=== PATIENT | male | born 1945 | race African-American/Black ===

== ENCOUNTER 2019-12-30 10:54 | Emergency (ER) | payer OTHER ==
[2019-12-31 12:22] LABS: SARS-CoV-2 MS2 Positive; SARS-CoV-2 N Gene Negative; SARS-CoV-2 S Gene Negative; SARS-CoV-2 by NAA Not Detected (NotDetected); SARS-CoV-2 orf1ab Negative
== END 2019-12-30 11:10 | disposition home or self-care (01) ==
LOC: ERS 10:54
DX: Z20.828 Contact with and (suspected) exposure to other viral communicable diseases (principal); E11.42 Type 2 diabetes mellitus with diabetic polyneuropathy; E78.5 Hyperlipidemia, unspecified; E78.00 Pure hypercholesterolemia, unspecified; I10 Essential (primary) hypertension; M10.9 Gout, unspecified; F32.9 Major depressive disorder, single episode, unspecified; Z87.891 Personal history of nicotine dependence; Z79.4 Long term (current) use of insulin
CPT/HCPCS: 87635; 99283; U0003

== ENCOUNTER 2020-05-21 14:14 | Inpatient (IN) | payer OTHER ==
[2020-05-21 15:44] LABS: #Eosinphils 0.2 thou/uL (0.0-0.7); #Lymphocytes 1.2 thou/uL (1.20-3.40); #Monocytes 0.6 thou/uL (0.11-0.59); #Neutrophils 3.9 thou/uL (1.40-6.50); %Basophils 0.4 % (0.0-1.0); %Eosinophils 3.2 % (0.0-10.0); %Lymphocytes 20.8 % (21.0-51.0); %Monocytes 9.8 % (0.0-10.0); %Neutrophils 65.9 % (42.0-75.0); Hemoglobin 10.5 g/dL (14.0-18.0); Mean Corpuscular HGB CONC 34.4 g/dL (32.0-36.0); Mean Corpuscular Hemoglobin 34.1 pg (27.0-31.0); Mean Corpuscular Volume 99.2 fL (78.0-98.0); Platelet Count 135 thou/uL (130-400); RBC Distribution Width 14.5 % (11.5-14.5); Red Blood Cell (RBC) Count 3.08 mill/uL (4.70-6.10); White Blood Cell (WBC) Count 5.9 thou/uL (4.8-10.8)
[2020-05-21 16:06] LABS: ALT (SGPT) 12 U/L (8-55); AST (SGOT) 15 U/L (5-34); Albumin 4.1 g/dL (3.4-4.8); Alkaline Phosphatase 62 U/L (40-110); Anion Gap 27 mmol/L (10-20); BUN (Urea Nitrogen) 109 mg/dL (8.4-25.7); Bilirubin, Total 0.5 mg/dL (0.2-1.2); Calc. Creatinine Clearance 0 mL/min (70-130); Calcium 9.2 mg/dL (7.8-10.44); Carbon Dioxide 21 mmol/L (23-31); Chloride 97 mmol/L (98-107); Globulin 3.2 g/dL (2.4-3.5); Glucose 96 mg/dL (83-110); Potassium 6.5 mmol/L (3.5-5.1); Protein, Total 7.3 g/dL (5.8-8.1); Sodium 138 mmol/L (136-145)
[2020-05-21] MEDS ORDERED: Heparin 1,000 UNITS/ML VIAL ONE (16:36)
[2020-05-21] MEDS ORDERED: Dextrose 50% Abboject 50 ML SYRINGE ONE ×2 (19:34→23:09)
[2020-05-21] MEDS ORDERED: Sodium Bicarb 50 MEQ/50 ML Abboject 8.4% SYRINGE ONE (19:34)
[2020-05-21] MEDS ORDERED: Insulin Regular 300 UNITS/3 ML VIAL ONE (19:34)
[2020-05-21] MEDS ORDERED: Calcium Chloride 1 GM/10 ML Abboject SYRINGE ONE (19:34)
[2020-05-21] MEDS ORDERED: Acetaminophen 325 MG TAB PO PRN (20:43)
[2020-05-21] MEDS ORDERED: Acetaminophen 650 MG Suppository PR PRN (20:43)
[2020-05-21] MEDS ORDERED: Dextrose 5% in Water 1,000 ML IV PRN (20:44)
[2020-05-21] MEDS ORDERED: Dextrose 50% Abboject 50 ML SYRINGE SLOW IVP PRN (20:44)
[2020-05-21] MEDS ORDERED: HumaLOG 300 UNITS/3 ML VIAL SC PRN ×2 (20:44)
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
[2020-05-21 21:57] LABS: INR-International Normal Ratio 1.1; PTT 32.5 sec (22.9-36.1); Prothrombin Time 14.2 sec (12.0-14.7)
[2020-05-21 22:03] LABS: Anion Gap 26 mmol/L (10-20); BUN (Urea Nitrogen) 111 mg/dL (8.4-25.7); Calc. Creatinine Clearance 0 mL/min (70-130); Calcium 9.9 mg/dL (7.8-10.44); Carbon Dioxide 24 mmol/L (23-31); Chloride 98 mmol/L (98-107); Magnesium 3.2 mg/dL (1.6-2.6); Phosphorus 7.1 mg/dL (2.3-4.7); Potassium 5.2 mmol/L (3.5-5.1); Sodium 143 mmol/L (136-145)
[2020-05-21 22:31] LABS: SARS-CoV-2 NAA Rapid Test Not Detected (NotDetected)
[2020-05-21 22:35] LABS: Glucose 41 mg/dL (83-110)
[2020-05-22] MEDS: hydrALAZINE 20 MG/ML VIAL SLOW IVP PRN ×3 (02:21→10:22)
[2020-05-22 04:23] VITALS: BMI 24.3
[2020-05-22 04:48] LABS: #Eosinphils 0.2 thou/uL (0.0-0.7); #Lymphocytes 1.4 thou/uL (1.20-3.40); #Monocytes 0.6 thou/uL (0.11-0.59); #Neutrophils 4.1 thou/uL (1.40-6.50); %Basophils 0.4 % (0.0-1.0); %Eosinophils 3.6 % (0.0-10.0); %Lymphocytes 21.8 % (21.0-51.0); %Monocytes 9.6 % (0.0-10.0); %Neutrophils 64.6 % (42.0-75.0); Hemoglobin 10.3 g/dL (14.0-18.0); Mean Corpuscular HGB CONC 34.6 g/dL (32.0-36.0); Mean Corpuscular Volume 98.4 fL (78.0-98.0); Mean Platelet Volume 9.1 fL (7.4-10.4); Platelet Count 121 thou/uL (130-400); RBC Distribution Width 14.4 % (11.5-14.5); Red Blood Cell (RBC) Count 3.03 mill/uL (4.70-6.10); White Blood Cell (WBC) Count 6.3 thou/uL (4.8-10.8)
[2020-05-22 05:08] LABS: ALT (SGPT) 12 U/L (8-55); AST (SGOT) 14 U/L (5-34); Albumin 3.8 g/dL (3.4-4.8); Alkaline Phosphatase 56 U/L (40-110); Anion Gap 26 mmol/L (10-20); BUN (Urea Nitrogen) 120 mg/dL (8.4-25.7); Bilirubin, Total 0.6 mg/dL (0.2-1.2); Calc. Creatinine Clearance 5 mL/min (70-130); Calcium 9.2 mg/dL (7.8-10.44); Carbon Dioxide 24 mmol/L (23-31); Chloride 99 mmol/L (98-107); Glucose 111 mg/dL (83-110); Potassium 6.4 mmol/L (3.5-5.1); Protein, Total 6.8 g/dL (5.8-8.1); Sodium 143 mmol/L (136-145)
[2020-05-22] MEDS ORDERED: Dextrose 50% Abboject 50 ML SYRINGE SLOW IVP PRN (08:14)
[2020-05-22] MEDS ORDERED: Insulin Regular 300 UNITS/3 ML VIAL IVP SCH (08:15)
[2020-05-22] MEDS ORDERED: traMADol HCl 50 MG TAB PO PRN (09:53)
[2020-05-22] MEDS ORDERED: Acetaminophen 500 MG TAB PO PRN (09:53)
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
--- NOTE | 2020-05-22 11:07 | ULT ---
Right upper extremity Doppler ultrasound for dialysis access: 05/22/2020 COMPARISON: None. HISTORY: End-stage renal disease. TECHNIQUE: Multiplanar grayscale sonographic imaging of the vascular structures of the right upper ex tremity obtained with Doppler interrogation including color flow and spectral analysis as detailed below. FINDINGS: The left upper extremity vascular structures are not assessed on this exam. The right internal jugular vein, subclavian vein, and axillary vein are patent. VESSEL DIAMETER (mm) Right Brachial Artery 4.8 Right Radial Artery 2.9 Right Ulnar Artery 2.5 RIGHT CEPHALIC VEIN: Above Elbow Proximal Too small to visualize Above Elbow Mid 1.1 Above Elbow Distal 1.5 At Elbow Partially compressed secondary to nonocclusive clot Below Elbow Proximal 1.4 Below Elbow Mid 1.0 Below Elbow Distal 0.9 RIGHT BASILIC VEIN: Above Elbow Proximal 2.4 Above Elbow Mid 2.4 Above Elbow Distal 2.3 At Elbow Thrombosis Below Elbow Proximal Thrombosis Below Elbow Mid 1.2 Below Elbow Distal 1.4 IMPRESSION: Vascular ultrasound of the right upper extremity as detailed above. There is thrombosis o f the basilic vein and cephalic vein on the right as detailed above. Transcribed Date/Time: 05/22/2020 11:22 AM
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
--- NOTE | 2020-05-22 12:01 | CON ---
DATE OF CONSULTATION: 05/22/2020 HISTORY OF PRESENT ILLNESS: Mr. Saha is a 74-year-old black male with ESRD, on maintenance hemodialysis, who was admitted due to a nonfunctioning AV fistula. The patient has not had dialysis for almost a week. When the labs were checked, potassium was elevated at 6.4. Kayexalate was given. An attempt to undergo AV fistulogram was not done due to manpower issues. Surgical consult was done with Dr. Pena who placed a temporary right femoral dialysis catheter. We are now being consulted for management of his ESRD. REVIEW OF SYSTEMS: No chest pain. No shortness of breath. No nausea. No vomiting. No diarrhea. No constipation. No productive cough. No fever or chills. No headache. No diplopia. No sore throat. No abdominal pain. Appetite and energy level is fair. No gross hematuria. No dysuria. No urinary frequency. No melena. No hematemesis. No nausea or vomiting. No syncopal episode. PAST MEDICAL HISTORY: 1. Type 2 diabetes mellitus. 2. ESRD from diabetic nephropathy. 3. Hypertension. 4. Gout. 5. Hyperlipidemia. 6. Peripheral neuropathy. 7. Peripheral vascular disease. 8. Status post depression. PAST SURGICAL HISTORY: 1. Status post AV fistula placement. 2. Status post back surgery. 3. Status post left AKA. 4. Status post hemorrhoidectomy. SOCIAL HISTORY: The patient lives in the [facility]. He has 3 children. His is currently in residential, and for that reason, lives alone. Used to smoke one pack a day for about 20+ years, but quit 10 years ago. No alcohol. No drug abuse. Status post blood transfusion. The patient is a . FAMILY HISTORY: No family history of ESRD. ALLERGIES: NO KNOWN DRUG ALLERGIES. TRAUMA: None. IMMUNIZATION: Up to date. HOSPITALIZATIONS: Please see past medical history. PHYSICAL EXAMINATION: VITAL SIGNS: Blood pressure is 183/84, heart rate 65, respiratory rate 17, temperature 98.7, and O2 saturation 99% on room air. GENERAL: Awake, alert, comfortable, not in overt distress. SKIN: Adequate turgor. HEENT: Slightly pale conjunctivae. Anicteric sclerae. NECK: No neck mass. No carotid bruits. No JVD. CHEST: No deformities. LUNGS: Clear breath sounds. No wheezing. No crackles. HEART: Normal sinus rhythm. No murmur. No gallops. No rubs. ABDOMEN: Globular, soft, and nontender. No masses. EXTREMITIES: No edema. Status post left AKA. NEUROLOGIC: Awake and oriented to 3 spheres. Moving all extremities. No tremors. No asterixis. No ataxia. LABORATORY DATA: On 05/22/2020: White count 6.3 and hemoglobin 10.3. Sodium 143, potassium 6.4, chloride 99, carbon dioxide 24, BUN 120, creatinine 17.1, glucose 111, AST 14, and ALT 12. ASSESSMENT AND PLAN: 1. End-stage renal disease/hyperkalemia, the right femoral hemodialysis catheter has been placed. He will go emergent hemodialysis for 3 hours today. Fluid removal will be done only as tolerated. 2. Anemia. We will restart Epogen, weekly, regimen. 3. Arteriovenous malformation fistula nonfunctional, surgical consult has been done with Dr. Pena. 4. We will recheck CBC and basic metabolic in a.m. Job ID: [id number]
[2020-05-22] MEDS ORDERED: EPOETIN ALFA-EPBX (ESRD) 4,000 UNIT/ML VIAL SC SCH (12:15)
--- NOTE | 2020-05-22 13:15 | PDOC.HOSPP ---
- Subjective Encounter Date: 05/22/20 Encounter Time: 09:00 Subjective: F/u: hyperkalemia The patient's potassium was 6.5. He had not received kayexelate yet this am. He had right groin cath placed by Dr. Pena, plan for dialysis today He has no cramps, palpitations or chest pain. No shortness of breath - Objective Vital Signs & Weight: Vital Signs (12 hours) Temp Pulse Resp BP BP Pulse Ox 05/22/20 10:22 65 226/93 H 05/22/20 08:00 98.7 F 65 17 183/84 H 99 05/22/20 06:00 67 187/83 H 05/22/20 05:02 97.8 F 67 18 187/83 H 97 05/22/20 03:10 65 18 184/82 H 05/22/20 01:18 53 L 194/84 H Weight Weight 189 lb 6 oz I&O: 05/21/20 05/22/20 05/23/20 06:59 06:59 06:59 Intake Total 0 Output Total 0 Balance 0 Result Diagrams: 05/22/20 04:16 05/22/20 04:16 Additional Labs: Accuchecks 05/22/20 05/22/20 05/21/20 09:50 01:50 23:41 POC Glucose 64 L 98 149 H Hospitalist ROS - Review of Systems Constitutional: denies: fever, chills - Medication Medications: Active Medications Generic Name Dose Route Start Last Admin Trade Name Freq PRN Reason Stop Dose Admin Dextrose/Water 25 gm 05/21/20 20:44 05/21/20 23:11 Dextrose 50% Abboject 50 Ml Syringe SLOW IVP 25 gm PRN PRN Administration Hypoglycemia Hydralazine HCl 10 mg 05/22/20 01:18 05/22/20 10:22 Hydralazine 20 Mg/Ml Vial SLOW IVP 10 mg Q4H PRN Administration SBP Greater Than 180 Sodium Chloride 10 ml 05/21/20 20:43 05/22/20 02:21 Flush - Normal Saline 10 Ml Syringe IVF 10 ml Q12HR PRN Administration Saline Flush Hospitalist Exam Vitals: Vital Signs (12 hours) Temp Pulse Resp BP BP Pulse Ox 05/22/20 10:22 65 226/93 H 05/22/20 08:00 98.7 F 65 17 183/84 H 99 05/22/20 06:00 67 187/83 H 05/22/20 05:02 97.8 F 67 18 187/83 H 97 05/22/20 03:10 65 18 184/82 H 05/22/20 01:18 53 L 194/84 H Weight Weight 189 lb 6 oz General Appearance: NAD, awake alert Eye: PERRL, anicteric sclera ENT: normocephalic atraumatic, no oropharyngeal lesions Neck: supple, no JVD Heart: RRR, no murmur, no gallops, no rubs Respiratory: CTAB, no wheezes, no rales, no ronchi Gastrointestinal: soft, non-tender, non-distended, normal bowel sounds Extremities: no cyanosis, no clubbing, no edema Extremities - other findings: right groin cath Skin: normal turgor, no lesions, no rashes Neurological: cranial nerve grossly intact, normal sensation to touch, no weakness, no new deficit Musculoskeletal: normal tone, normal strength, no muscle wasting Psychiatric: normal affect, normal behavior, A&O x 3 Hosp A/P - Plan This is a 74 year old male with CKD who presented to the hospital due to inability to get dialysis , was found to be hyperkalemia Hyperkalemia due to ESRD - potassium 6.5, given kayexelate, insulin/dextrose. Dr. Pena placed right groin cath. Nephrology consulted will start dialysis Type II diabetes - not on any home medicine Hypertensive urgency - BP 220 systolic, resume coreg and imdur Anemia - hb 10, will check B12/folate and TSH
[2020-05-22] MEDS: Aspirin 81 mg Enteric Coated Tablet PO SCH (14:03)
[2020-05-22 15:59] LABS: Anion Gap 25 mmol/L (10-20); BUN (Urea Nitrogen) 39 mg/dL (8.4-25.7); Calc. Creatinine Clearance 12 mL/min (70-130); Calcium 9.1 mg/dL (7.8-10.44); Carbon Dioxide 23 mmol/L (23-31); Chloride 98 mmol/L (98-107); Glucose 86 mg/dL (83-110); Potassium 3.7 mmol/L (3.5-5.1); Sodium 142 mmol/L (136-145)
[2020-05-22] MEDS: Sevelamer Carbonate 800 MG TAB PO SCH ×2 (16:05→20:49)
[2020-05-22] MEDS ORDERED: Heparin 10,000 UNITS/ 10 ML VIAL ONE (16:55)
[2020-05-22] MEDS: Carvedilol 6.25 MG TAB PO SCH (20:49)
[2020-05-23 08:36] LABS: #Eosinphils 0.2 thou/uL (0.0-0.7); #Monocytes 0.7 thou/uL (0.11-0.59); #Neutrophils 3.8 thou/uL (1.40-6.50); %Basophils 0.1 % (0.0-1.0); %Lymphocytes 17.6 % (21.0-51.0); %Monocytes 12.5 % (0.0-10.0); %Neutrophils 66.8 % (42.0-75.0); Hemoglobin 12.3 g/dL (14.0-18.0); Mean Corpuscular HGB CONC 31.8 g/dL (32.0-36.0); Mean Corpuscular Hemoglobin 31.5 pg (27.0-31.0); Mean Corpuscular Volume 99.2 fL (78.0-98.0); Mean Platelet Volume 8.7 fL (7.4-10.4); Platelet Count 130 thou/uL (130-400); RBC Distribution Width 14.8 % (11.5-14.5); Red Blood Cell (RBC) Count 3.91 mill/uL (4.70-6.10); White Blood Cell (WBC) Count 5.7 thou/uL (4.8-10.8)
[2020-05-23] MEDS: NIFEdipine XL 30 MG TAB PO SCH (09:20)
[2020-05-23] MEDS: Sevelamer Carbonate 800 MG TAB PO SCH ×3 (09:21→17:01)
[2020-05-23] MEDS: Aspirin 81 mg Enteric Coated Tablet PO SCH (09:21)
[2020-05-23] MEDS: pyridOXINE 50 MG (B6) TAB PO SCH (09:21)
[2020-05-23] MEDS: Multivit, Therapeutic 1 TAB PO SCH (09:21)
[2020-05-23] MEDS: Carvedilol 6.25 MG TAB PO SCH ×2 (09:21→20:43)
[2020-05-23] MEDS: Rosuvastatin 20 MG TAB PO SCH (09:21)
[2020-05-23 12:00] LABS: Chloride 96 mmol/L (98-107); Potassium 4.9 mmol/L (3.5-5.1); Sodium 137 mmol/L (136-145)
[2020-05-23 12:01] LABS: Calcium 8.5 mg/dL (7.8-10.44); Glucose 179 mg/dL (83-110)
[2020-05-23 12:03] LABS: Anion Gap 23 mmol/L (10-20); Carbon Dioxide 23 mmol/L (23-31)
[2020-05-23 12:05] LABS: BUN (Urea Nitrogen) 66 mg/dL (8.4-25.7)
[2020-05-23 12:07] LABS: Calc. Creatinine Clearance 6 mL/min (70-130)
--- NOTE | 2020-05-23 12:14 | PDOC.HOSPP ---
- Subjective Encounter Date: 05/23/20 Encounter Time: 07:30 Subjective: F/u: dialysis acccess The patient has no complaints. IR was unable to do fistulogram today and will do it 7 am tomorrow - Objective Vital Signs & Weight: Vital Signs (12 hours) Temp Pulse Resp BP Pulse Ox 05/23/20 09:20 69 05/23/20 07:53 99 05/23/20 07:45 97.7 F 69 18 184/76 H 99 05/23/20 04:00 98.5 F 78 16 160/74 H 100 Weight Weight 185 lb 10.067 oz I&O: 05/22/20 05/23/20 05/24/20 06:59 06:59 06:59 Intake Total 0 820 Output Total 0 0 Balance 0 820 Result Diagrams: 05/23/20 08:08 05/23/20 09:28 Additional Labs: Accuchecks 05/23/20 05/23/20 05/22/20 10:40 05:44 21:02 POC Glucose 119 H 102 H 179 H 05/22/20 17:12 POC Glucose 87 Hospitalist ROS - Review of Systems Constitutional: denies: fever, chills - Medication Medications: Active Medications Generic Name Dose Route Start Last Admin Trade Name Freq PRN Reason Stop Dose Admin Aspirin 81 mg 05/22/20 09:00 05/23/20 09:21 Aspirin 81 Mg Enteric Coated Tablet PO 81 mg DAILY PARKER Administration Carvedilol 6.25 mg 05/22/20 21:00 05/23/20 09:21 Carvedilol 6.25 Mg Tab PO 6.25 mg BID PARKER Administration Dextrose/Water 25 gm 05/21/20 20:44 05/21/20 23:11 Dextrose 50% Abboject 50 Ml Syringe SLOW IVP 25 gm PRN PRN Administration Hypoglycemia Epoetin Jacinto-epbx 7,500 unit 05/22/20 12:15 05/22/20 17:23 Epoetin Jacinto-Epbx (Esrd) 4,000 Unit/Ml Vial SC 7,500 unit Q7D PARKER Administration Hydralazine HCl 10 mg 05/22/20 01:18 05/22/20 10:22 Hydralazine 20 Mg/Ml Vial SLOW IVP 10 mg Q4H PRN Administration SBP Greater Than 180 Isosorbide Mononitrate 60 mg 05/23/20 09:00 05/23/20 09:21 Isosorbide Mononitrate Er 60 Mg Tab PO 60 mg DAILY PARKER Administration Multivitamins 1 tab 05/23/20 09:00 05/23/20 09:21 Multivit, Therapeutic 1 Tab PO 1 tab DAILY PARKER Administration Nifedipine 30 mg 05/23/20 09:00 05/23/20 09:20 Nifedipine Xl 30 Mg Tab PO 30 mg DAILY PARKER Administration Pyridoxine HCl 50 mg 05/23/20 09:00 05/23/20 09:21 Pyridoxine 50 Mg (B6) Tab PO 50 mg DAILY PARKER Administration Rosuvastatin Calcium 20 mg 05/23/20 09:00 05/23/20 09:21 Rosuvastatin 20 Mg Tab PO 20 mg DAILY PARKER Administration Sevelamer Carbonate 2,400 mg 05/23/20 07:30 05/23/20 09:21 Sevelamer Carbonate 800 Mg Tab PO 2,400 mg AC PARKER Administration Sodium Chloride 10 ml 05/21/20 20:43 05/22/20 02:21 Flush - Normal Saline 10 Ml Syringe IVF 10 ml Q12HR PRN Administration Saline Flush Hospitalist Exam Vitals: Vital Signs (12 hours) Temp Pulse Resp BP Pulse Ox 05/23/20 09:20 69 05/23/20 07:53 99 05/23/20 07:45 97.7 F 69 18 184/76 H 99 05/23/20 04:00 98.5 F 78 16 160/74 H 100 Weight Weight 185 lb 10.067 oz General Appearance: NAD, awake alert Eye: PERRL, anicteric sclera ENT: normocephalic atraumatic, no oropharyngeal lesions Neck: no JVD Heart: RRR, no murmur, no gallops, no rubs Respiratory: CTAB, no wheezes, no rales, no ronchi Gastrointestinal: soft, non-tender, non-distended, normal bowel sounds, no splenomegaly Extremities: no cyanosis, no clubbing, no edema Skin: normal turgor, no lesions, no rashes Neurological: cranial nerve grossly intact, normal sensation to touch, no weakness Hosp A/P - Plan This is a 74 year old male with CKD who presented to the hospital due to inability to get dialysis , was found to be hyperkalemia Hyperkalemia due to ESRD - resolved. Patient got dialysis yesterday. Groin cath in place in the left groin Type II diabetes - not on any home medicine. Check hemoglobin A1C Hypertensive urgency - BP 18, continue coreg, imdur and started nifedipine by nephrology Anemia - hb stable, B12/folate/TSH normal
--- NOTE | 2020-05-23 12:27 | PRG ---
DATE OF SERVICE: 05/23/2020 SUBJECTIVE: Mr. Saha is a 74-year-old black male with ESRD, who was admitted for a nonfunctional AV graft. Please note, the patient was also noted to be hyperkalemic. An emergent hemodialysis was done yesterday. A temporary femoral dialysis catheter was placed by Dr. Pena. Due to his poor vasculature, patient is being considered for PD catheter placement. I gave the patient education regarding peritoneal dialysis. He is hesitant to proceed with the said peritoneal dialysis. He tells me he lives alone and his is currently in a fpc. The patient voices no new complaints. He denies any chest pain or shortness of breath. OBJECTIVE: VITAL SIGNS: Blood pressure is 184/76, heart rate 69, respiratory rate 18, temperature is 97.7, O2 saturation 99%. GENERAL: The patient is awake, alert, comfortable, not in overt distress. SKIN: Adequate turgor. HEENT: He has pinkish conjunctivae. Anicteric sclerae. No neck mass. No carotid bruits. No JVD. CHEST: No deformities. LUNGS: Clear breath sounds. No wheezing. No crackles. HEART: Normal sinus rhythm. No murmurs, gallops, or rubs. ABDOMEN: Globular, soft, nontender. No masses. EXTREMITIES: No edema. No deformities. Please note he is status post left AKA. MEDICATIONS: May 23, 2020, was reviewed. LABORATORY DATA: May 23, 2020; white count 5.7, hemoglobin 12.3. May 22, 2020; sodium 142, potassium 3.7, chloride 98, carbon dioxide 23, BUN 39, creatinine 6.56. TSH 1.5. ASSESSMENT AND PLAN: 1. End-stage renal disease, stable. Potassium is much improved with dialysis yesterday. Continue current Wednesday, Wednesday, and Wednesday dialysis schedule. 2. Hyperkalemia, resolved with dialysis. 3. Clotted arteriovenous graft, patient was educated on option of peritoneal dialysis. I did try to convince him the advantages of the peritoneal dialysis, but he is still hesitant to proceed with it at the present time. Based on the studies and Dr. Pena's opinions that he has poor vascular access. For that reason, we are trying to open the option of peritoneal dialysis for this patient. 4. We will recheck CBC, basic metabolic in a.m. Job ID: [id number]
[2020-05-23 13:20] LABS: Hemoglobin A1c 5.4 % (4.0-6.0)
[2020-05-23] MEDS ORDERED: CEFAZOLIN 2 GM in Premix Bag 1 BAG IVPB SCH (14:15)
--- NOTE | 2020-05-23 14:41 | PRG ---
DATE OF SERVICE: Turner Saha has undergone dialysis. I have spoken to the dialysis acute team today and asked them not to dialyze him in the morning. The patient is scheduled to undergo 0800 Interventional Radiology attempt to salvage his left upper arm graft. This has already been declotted last year by Dr. Currie, [facility]. Ultrasound vein mapping right arm reveals veins to be suboptimal and many are thrombosed. If his left arm dialysis graft is nonsalvageable, he will need a right arm fistula most likely prosthetic graft. He will need a hemodialysis cuffed tunneled catheter. These procedures can be done as an outpatient such that tomorrow after Interventional Radiology is completed and their procedures and if they are unable to salvage his left upper arm graft, he will go to the operating room for a hemodialysis catheter and a right arm fistula most likely prosthetic graft. I have talked to Dr. Marcos. I have talked to the patient regarding options for peritoneal dialysis. He would be a good peritoneal dialysis candidate. He however has pets and he is apprehensive and does not want to do that at this time. It will be a future consideration. At this point, we will keep him n.p.o. after midnight and keep him n.p.o. after his Interventional Radiology procedure in the morning in case he needs to go to the operating room for a cuffed tunneled dialysis catheter. After procedures tomorrow morning, he could be dialyzed and seemed to be discharged home as an outpatient. I have talked to the patient about performing these procedures under general anesthesia as he is amputee and needs use of his arm for transfers and mobility and regional anesthesia, probably should be avoided. This will facilitate discharge. Job ID: [id number]
[2020-05-23] MEDS: hydrALAZINE 20 MG/ML VIAL SLOW IVP PRN (16:57)
[2020-05-23] MEDS ORDERED: Carvedilol 6.25 MG TAB PO SCH (22:30)
[2020-05-24 03:48] LABS: #Eosinphils 0.2 thou/uL (0.0-0.7); #Lymphocytes 1.2 thou/uL (1.20-3.40); #Monocytes 0.6 thou/uL (0.11-0.59); #Neutrophils 2.9 thou/uL (1.40-6.50); %Basophils 0.8 % (0.0-1.0); %Eosinophils 3.2 % (0.0-10.0); %Lymphocytes 24.6 % (21.0-51.0); %Monocytes 12.6 % (0.0-10.0); %Neutrophils 58.8 % (42.0-75.0); Hemoglobin 10.6 g/dL (14.0-18.0); Mean Corpuscular HGB CONC 33.3 g/dL (32.0-36.0); Mean Corpuscular Hemoglobin 32.5 pg (27.0-31.0); Mean Corpuscular Volume 97.4 fL (78.0-98.0); Platelet Count 115 thou/uL (130-400); RBC Distribution Width 14.3 % (11.5-14.5); Red Blood Cell (RBC) Count 3.28 mill/uL (4.70-6.10)
[2020-05-24 04:09] LABS: Anion Gap 21 mmol/L (10-20); BUN (Urea Nitrogen) 83 mg/dL (8.4-25.7); Calc. Creatinine Clearance 6 mL/min (70-130); Calcium 8.1 mg/dL (7.8-10.44); Carbon Dioxide 24 mmol/L (23-31); Chloride 93 mmol/L (98-107); Glucose 188 mg/dL (83-110); Potassium 4.4 mmol/L (3.5-5.1); Sodium 134 mmol/L (136-145)
[2020-05-24] MEDS: Sevelamer Carbonate 800 MG TAB PO SCH ×3 (08:10→19:28)
[2020-05-24] MEDS: Carvedilol 6.25 MG TAB PO SCH ×2 (08:10→20:29)
[2020-05-24] MEDS: NIFEdipine XL 30 MG TAB PO SCH (08:10)
[2020-05-24] MEDS: pyridOXINE 50 MG (B6) TAB PO SCH (08:11)
[2020-05-24] MEDS: Rosuvastatin 20 MG TAB PO SCH (08:11)
[2020-05-24] MEDS: Multivit, Therapeutic 1 TAB PO SCH (08:11)
[2020-05-24] MEDS: Aspirin 81 mg Enteric Coated Tablet PO SCH (08:11)
[2020-05-24] MEDS ORDERED: Sterile Water 10 ML VIAL IVP SCH (08:15)
[2020-05-24] MEDS ORDERED: Activase 2 MG VIAL CATH SCH (08:15)
[2020-05-24] MEDS ORDERED: Iopamidol 300 61% 100 ML VIAL FS ONE (11:27)
--- NOTE | 2020-05-24 11:35 | SPC ---
Left upper arm dialysis fistulogram Thrombolysis and percutaneous balloon angioplasty left upper extremity dialysis fistula Sonographic guided vascular access x2 HISTORY: Renal failure. Clotted left upper extremity dialysis graft FINDINGS: After explaining the procedure and answering all questions, left upper extremity was preppe d and draped in usual sterile fashion. Sterile technique, buffered local anesthesia, sonographic guidance, and a 22-gauge needle were used t o carefully access the peripheral portion of the left upper arm dialysis graft. Serial dilatation to 6 Austrian was performed to allow placement of a short 6 Austrian sheath. A 5 Austrian Berenstein catheter was used to show clot throughout the graft. Stenosis at the venous miah stomosis and the central portion of the graft. Stasis of blood but no clot within the left axillary and subclavian veins. The superior vena cava is widely patent. A second vascular access with sonographic guidance was performed at the central aspect of the graft, directed towards the arterial inflow. Serial dilatation to 6 Austrian and placement of a short 6 Austrian sheath. Berenstein catheter was carefully advanced to show the arterial anastomosis to be widely patent. Irre gular areas of narrowing at the peripheral aspect of the graft with extensive clot throughout the graft. Using a Berenstein catheter, a total volume of 10 cc liquid containing 4 mg Cathflo and 2000 units he ethan was carefully laced throughout the clot along the entirety of the graft, using both sheaths for access. Later in the procedure, an additional 2000 units of heparin were administered. A 6 mm x 4 cm dilatation balloon was carefully advanced over a glide wire to the axillary vein, with full balloon profile achieved. A focal area of mild narrowing persistent at the axillary vein which and was eventually dilated to 8 mm. The original 6 mm balloon was carefully inflated at the venous anastomosis and along the entirety of the graft length, with full balloon profile achieved, using both of the vascular accesses . Repeat angiogram shows good flow throughout the graft with mild residual wall irregularity. Sheaths were removed and hemostasis obtained using direct pressure. Patient tolerated the procedure w ell and was returned in unchanged condition. IMPRESSION : Technically successful thrombolysis and balloon angioplasty of left upper extremity graft with restor ation of good vascular flow. Findings were called to Dr. Pena at the time of the exam. Code CR.
--- NOTE | 2020-05-24 11:50 | PRG ---
DATE OF SERVICE: 05/24/2020 Turner Saha has left arm dialysis graft, has been thrombosed for 5 to 7 days. He has a temporary femoral vein dialysis catheter. Enabling dialysis to treat his hyperkalemia. Today, Dr. Amando Abdullahi, Interventional Radiology was able to salvage the left upper arm graft, open it. The patient did have some narrowing as suspect of venous anastomosis and this angioplastied. The whole entire graft was angioplastied. Currently, the graft is patent and functional and will be used for dialysis. I have communicated with the dialysis team and if they are able to dialyze him today utilizing that, the femoral vein catheter can be removed and patient can be discharged home. The patient's graft will need to be observed and undergo q.3 to 6 months angiograms to maintain patency. Right arm venous structures were small, partially thrombosed, suitable for [place] vein fistula. If this left graft fails, surgical revision in the axillary outflow could be performed as there is adequate vein for that, but if however, stent is placed by Interventional that would not be possible. Should the right arm be necessary to establish dialysis access, he would certainly most likely need a prosthetic graft. These are less durable in [place] vein fistulas. I have talked to him about consideration of peritoneal dialysis. The patient has pets at home and he is apprehensive about this and thus does not want to proceed with that at this time; however, this is an option in the future should dialysis access become compromised. Today, if he dialyzed successfully using his left arm graft, he can resume his renal diet and be discharged home today. The temporary dialysis catheter groin can be removed. It will be left in place at this time until we assure he can use the left upper arm graft for dialysis. Job ID: [id number]
--- NOTE | 2020-05-24 17:02 | PDOC.DS.DS ---
Provider Date of Admission: 05/22/20 13:12 Date of Discharge: 05/24/20 Admitting Provider: Inocente Malone MD Consultations: General Surgery (Dr. Sd Pena), Nephrology (Dr Etienne Marcos) Primary Care Physician: [facility] Course Hospital Course: Discharge Diagnoses: Thrombosis of cephalic and basilic vein s/p thrombolysis and balloon angioplasty of left upper exterimty graft Brief HPI: This is a 74 year old with PMH of ESRD who presented to the ER due to inability to under go dialysis due to thrombosis of his graft. He had a potassium of 6.5, creatinine of 16.16 and was admitted for further workup. Hospital Course: The patient had a right temporary dialysis catheter placed and underwent dialysis. He then underwent fistulogram and was found to have thrombosis of his basilic and cephalic vein . He had thrombolysis and balloon angioplasty of left upper extremity graft on 05/24. He successfully had dialysis right after. Peritoneal dialysis was discussed with him, but he was hesitant to do that at this time. He will f/u with his PCP in a week. Hypertension: the patient had blood pressure of 160-180 while in the hospital. He was started on nifedipine 30 mg with improvement in his blood pressure to 136. HE will resume his coreg and imdur. Pertinent Studies: Doppler US 05/22: vascular US of the right upper extremity. Thrombosis of basilic vein and cephalic vein Procedures: Thrombolysis and balloon angioplasty of left upper extremity graft Resuscitation Status: 05/21/20 20:43 Resuscitation Status Routine Co-Sign Provider: Resuscitation Status: FULL: Full Resuscitation Lab Results: 05/24/20 03:16 05/24/20 03:16 Abnormal Lab Results - Last 48 hrs 05/23/20 08:08: RBC 3.91 L, Hgb 12.3 L, Hct 38.7 L, MCV 99.2 H, MCH 31.5 H, MCHC 31.8 L, RDW 14.8 H, Lymphocytes % 17.6 L, Monocytes % 12.5 H, Lymphocytes # 1.0 L, Monocytes # 0.7 H 05/23/20 09:28: Chloride 96 L, Anion Gap 23 H, BUN 66 H, Creatinine 12.77 H 05/24/20 03:16: Sodium 134 L, Chloride 93 L, Anion Gap 21 H, BUN 83 H, Creatinine 13.94 H 05/24/20 03:16: RBC 3.28 L, Hgb 10.6 L, Hct 31.9 L, MCH 32.5 H, Plt Count 115 L, Monocytes % 12.6 H, Monocytes # 0.6 H Microbiology - Entire Visit 05/21/20 15:33 Venous blood - Left Hand Blood Culture - Preliminary NO GROWTH AT 48 HOURS 05/21/20 15:33 Venous blood - Left Arm Blood Culture - Preliminary NO GROWTH AT 48 HOURS Vitals: Vital Signs (12 hours) Temp Pulse Resp BP Pulse Ox 05/24/20 11:30 97.9 F 76 16 138/68 99 05/24/20 08:10 68 05/24/20 07:35 100 05/24/20 07:33 97.2 F L 68 17 158/71 H 100 Weight Weight 189 lb 13.088 oz Physical Exam: The patient was seen and examined on the day of discharge. General Appearance: NAD, awake alert Eye: PERRL, anicteric sclera ENT: normocephalic atraumatic, no oropharyngeal lesions Neck: no JVD Respiratory: CTAB, no wheezes, no rales, no ronchi Cardiovascular: RRR, no murmur, no gallops, no rubs Gastrointestinal: soft, non-tender, non-distended, normal bowel sounds Extremities: no cyanosis, no clubbing, no edema Extremities - other findings: left arm graft repaire Skin: normal turgor, no lesions, no rashes Neurological: cranial nerve grossly intact, normal sensation to touch, no focal deficits, no new deficit Musculoskeletal: normal tone, normal strength, no muscle wasting PSYCH: normal affect, normal behavior, A&O x 3 Plan Prescriptions: NIFEdipine [Procardia XL] 30 mg PO DAILY #30 tab Home Medications: Medication Instructions Recorded Confirmed Type Aspirin [Ecotrin Low Strength] 81 mg PO DAILY 05/22/20 05/22/20 History Carvedilol [Coreg] 6.25 mg PO BID 05/22/20 05/22/20 History Folic Acid/Vit B Complex and C 1 tab PO DAILY 05/22/20 05/22/20 History [Nephro-Symone Tablet] Isosorbide Mononitrate [Imdur] 60 mg PO DAILY 05/22/20 05/22/20 History Multivitamin 1 each PO DAILY 05/22/20 05/22/20 History Mv-Mn/Iron/Folic Acid/Herb 190 1 tablet PO DAILY 05/22/20 05/22/20 History [Vitamin D3 Complete Caplet] Rosuvastatin [Crestor] 20 mg PO DAILY 05/22/20 05/22/20 History Sevelamer Carbonate 2,400 mg PO TID 05/22/20 05/22/20 History pyridOXINE [Vitamin B 6] 50 mg PO DAILY 05/22/20 05/22/20 History NIFEdipine [Procardia XL] 30 mg PO DAILY #30 tab 05/24/20 Rx Allergies: No Known Drug Allergies Allergy (Verified 05/22/20 07:39) Activity:: Activity as Tolerated Referrals: [facility] [Primary Care Provider] - 7 Days (please call office for follow up appointment.) Etienne Marcos MD [Active] - 7 Days (please call office for follow up appointment.) Disposition: HOME Quality CORE MEASURES:: N/A
--- NOTE | 2020-05-24 20:35 | PDOC.HOSPP ---
- Subjective Encounter Date: 05/24/20 Encounter Time: 17:00 Subjective: F/u : dialysis The patient had successful thrombolysis of graft and underwent dialysis. However this evening, patient had quite a bit of bleeding from his graft, so he did not feel comfortable going home - Objective Vital Signs & Weight: Vital Signs (12 hours) Temp Pulse Resp BP BP Pulse Ox 05/24/20 20:29 153/70 H 05/24/20 20:00 98.6 F 97 20 153/70 H 99 05/24/20 16:50 98.1 F 84 18 133/63 98 05/24/20 11:30 97.9 F 76 16 138/68 99 Weight Weight 189 lb 13.088 oz I&O: 05/23/20 05/24/20 05/25/20 06:59 06:59 06:59 Intake Total 820 1740 480 Output Total 0 450 2500 Balance 820 1290 -2020 Result Diagrams: 05/24/20 03:16 05/24/20 03:16 Additional Labs: Accuchecks 05/24/20 05/24/20 05/23/20 17:12 06:07 20:31 POC Glucose 64 L 113 H 107 H Hospitalist ROS - Review of Systems Constitutional: denies: fever, chills - Medication Medications: Active Medications Generic Name Dose Route Start Last Admin Trade Name Freq PRN Reason Stop Dose Admin Aspirin 81 mg 05/22/20 09:00 05/24/20 08:11 Aspirin 81 Mg Enteric Coated Tablet PO Not Given DAILY PARKER Carvedilol 6.25 mg 05/22/20 21:00 05/24/20 20:29 Carvedilol 6.25 Mg Tab PO 6.25 mg BID PARKER Administration Dextrose/Water 25 gm 05/21/20 20:44 05/21/20 23:11 Dextrose 50% Abboject 50 Ml Syringe SLOW IVP 25 gm PRN PRN Administration Hypoglycemia Epoetin Jacinto-epbx 7,500 unit 05/22/20 12:15 05/22/20 17:23 Epoetin Jacinto-Epbx (Esrd) 4,000 Unit/Ml Vial SC 7,500 unit Q7D PARKER Administration Hydralazine HCl 10 mg 05/22/20 01:18 05/23/20 16:57 Hydralazine 20 Mg/Ml Vial SLOW IVP 10 mg Q4H PRN Administration SBP Greater Than 180 Isosorbide Mononitrate 60 mg 05/23/20 09:00 05/24/20 08:10 Isosorbide Mononitrate Er 60 Mg Tab PO 60 mg DAILY PARKER Administration Multivitamins 1 tab 05/23/20 09:00 05/24/20 08:11 Multivit, Therapeutic 1 Tab PO Not Given DAILY PARKER Nifedipine 30 mg 05/23/20 09:00 05/24/20 08:10 Nifedipine Xl 30 Mg Tab PO 30 mg DAILY PARKER Administration Pyridoxine HCl 50 mg 05/23/20 09:00 05/24/20 08:11 Pyridoxine 50 Mg (B6) Tab PO Not Given DAILY PARKER Rosuvastatin Calcium 20 mg 05/23/20 09:00 05/24/20 08:11 Rosuvastatin 20 Mg Tab PO Not Given DAILY PARKER Sevelamer Carbonate 2,400 mg 05/23/20 07:30 05/24/20 19:28 Sevelamer Carbonate 800 Mg Tab PO Not Given AC PARKER Sodium Chloride 10 ml 05/21/20 20:43 05/22/20 02:21 Flush - Normal Saline 10 Ml Syringe IVF 10 ml Q12HR PRN Administration Saline Flush Hospitalist Exam Vitals: Vital Signs (12 hours) Temp Pulse Resp BP BP Pulse Ox 05/24/20 20:29 153/70 H 05/24/20 20:00 98.6 F 97 20 153/70 H 99 05/24/20 16:50 98.1 F 84 18 133/63 98 05/24/20 11:30 97.9 F 76 16 138/68 99 Weight Weight 189 lb 13.088 oz General Appearance: NAD, awake alert Eye: PERRL, anicteric sclera ENT: normocephalic atraumatic, no oropharyngeal lesions Neck: no JVD Heart: RRR, no murmur, no gallops, no rubs Respiratory: CTAB, no wheezes, no rales, no ronchi Gastrointestinal: soft, non-tender, non-distended, normal bowel sounds Extremities: no cyanosis, no clubbing, no edema Skin: normal turgor, no lesions, no rashes Hosp A/P - Plan This is a 74 year old male with CKD who presented to the hospital due to inability to get dialysis due to malfunctioning AV graft, was found to be hyperkalemia Malfunctioning AV graft s/p thrombolysis ESRD - resolved. Patient had fistulogram and underwent thrombolysis of graft. He then developed bleeding. Will monitor overnight and trend CBC - groin cath removed. Patient received dialysis today Hyperkalemia - presented with potassium of 6.5. This resolved after dialysis Hypertension - BP 130 now, continue coreg, imdur and started nifedipine by nephrology Anemia - hb stable, B12/folate/TSH normal
[2020-05-25 07:44] VITALS: BP 143/58; TEMP 97.7
[2020-05-25] MEDS: Sevelamer Carbonate 800 MG TAB PO SCH (07:49)
[2020-05-25] MEDS: Carvedilol 6.25 MG TAB PO SCH (07:50)
[2020-05-25] MEDS: Multivit, Therapeutic 1 TAB PO SCH (07:50)
[2020-05-25] MEDS: NIFEdipine XL 30 MG TAB PO SCH (07:50)
[2020-05-25] MEDS: pyridOXINE 50 MG (B6) TAB PO SCH (07:50)
[2020-05-25] MEDS: Aspirin 81 mg Enteric Coated Tablet PO SCH (07:50)
[2020-05-25] MEDS: Rosuvastatin 20 MG TAB PO SCH (07:51)
--- NOTE | 2020-05-25 08:52 | PDOC.HOSPP ---
- Subjective Encounter Date: 05/25/20 (f/u clotted dialysis cath) Encounter Time: 08:50 Subjective: Pt remained in the hospital overnight due to bleeding from the groin dialysis cath removal. He denies any further bleeding. He denies any n/v/abd pain/cp or any other concerns. - Objective Vital Signs & Weight: Vital Signs (12 hours) Temp Pulse Resp BP BP Pulse Ox 05/25/20 07:50 72 05/25/20 07:43 97.7 F 72 18 143/58 H 99 05/25/20 04:03 98.1 F 71 20 176/72 H 96 Weight Weight 184 lb 4.903 oz I&O: 05/24/20 05/25/20 05/26/20 06:59 06:59 06:59 Intake Total 1740 600 Output Total 450 2500 Balance 1290 -1900 Result Diagrams: 05/24/20 03:16 05/24/20 03:16 Additional Labs: Accuchecks 05/25/20 05/24/20 05/24/20 05:30 20:50 17:12 POC Glucose 90 185 H 64 L EKG Reviewed by me: Yes (tele - none, removed yesterday) Hospitalist ROS - Medication Medications: Active Medications Generic Name Dose Route Start Last Admin Trade Name Freq PRN Reason Stop Dose Admin Aspirin 81 mg 05/22/20 09:00 05/25/20 07:50 Aspirin 81 Mg Enteric Coated Tablet PO 81 mg DAILY PARKER Administration Carvedilol 6.25 mg 05/22/20 21:00 05/25/20 07:50 Carvedilol 6.25 Mg Tab PO 6.25 mg BID PARKER Administration Dextrose/Water 25 gm 05/21/20 20:44 05/21/20 23:11 Dextrose 50% Abboject 50 Ml Syringe SLOW IVP 25 gm PRN PRN Administration Hypoglycemia Epoetin Jacinto-epbx 7,500 unit 05/22/20 12:15 05/22/20 17:23 Epoetin Jacinto-Epbx (Esrd) 4,000 Unit/Ml Vial SC 7,500 unit Q7D PARKER Administration Hydralazine HCl 10 mg 05/22/20 01:18 05/23/20 16:57 Hydralazine 20 Mg/Ml Vial SLOW IVP 10 mg Q4H PRN Administration SBP Greater Than 180 Isosorbide Mononitrate 60 mg 05/23/20 09:00 05/25/20 07:50 Isosorbide Mononitrate Er 60 Mg Tab PO 60 mg DAILY PARKER Administration Multivitamins 1 tab 05/23/20 09:00 05/25/20 07:50 Multivit, Therapeutic 1 Tab PO 1 tab DAILY PARKER Administration Nifedipine 30 mg 05/23/20 09:00 05/25/20 07:50 Nifedipine Xl 30 Mg Tab PO 30 mg DAILY PARKER Administration Pyridoxine HCl 50 mg 05/23/20 09:00 05/25/20 07:50 Pyridoxine 50 Mg (B6) Tab PO 50 mg DAILY PARKER Administration Rosuvastatin Calcium 20 mg 05/23/20 09:00 05/25/20 07:51 Rosuvastatin 20 Mg Tab PO 20 mg DAILY PARKER Administration Sevelamer Carbonate 2,400 mg 05/23/20 07:30 05/25/20 07:49 Sevelamer Carbonate 800 Mg Tab PO 2,400 mg AC PARKER Administration Sodium Chloride 10 ml 05/21/20 20:43 05/22/20 02:21 Flush - Normal Saline 10 Ml Syringe IVF 10 ml Q12HR PRN Administration Saline Flush Hospitalist Exam Vitals: Vital Signs (12 hours) Temp Pulse Resp BP BP Pulse Ox 05/25/20 07:50 72 05/25/20 07:43 97.7 F 72 18 143/58 H 99 05/25/20 04:03 98.1 F 71 20 176/72 H 96 Weight Weight 184 lb 4.903 oz General Appearance: NAD Heart: RRR, no murmur Respiratory: CTAB, no wheezes, no rales, no ronchi Gastrointestinal: non-tender, non-distended, normal bowel sounds Extremities: no edema Psychiatric: normal affect Hosp A/P (1) AV fistula occlusion Code(s): T82.898A - OT COMPLICATION OF VASCULAR PROSTH DEV/GRFT, INIT Status: Resolved (2) Diabetes mellitus Code(s): E11.9 - TYPE 2 DIABETES MELLITUS WITHOUT COMPLICATIONS Status: Chronic (3) ESRD (end stage renal disease) on dialysis Code(s): N18.6 - END STAGE RENAL DISEASE; Z99.2 - DEPENDENCE ON RENAL DIALYSIS Status: Chronic (4) Gout Code(s): M10.9 - GOUT, UNSPECIFIED Status: Chronic (5) Hyperlipidemia Code(s): E78.5 - HYPERLIPIDEMIA, UNSPECIFIED Status: Chronic (6) Hypertension Code(s): I10 - ESSENTIAL (PRIMARY) HYPERTENSION Status: Chronic (7) Peripheral neuropathy Code(s): G62.9 - POLYNEUROPATHY, UNSPECIFIED Status: Chronic - Plan Bleeding resolved, pt is cleared for discharge. discharge summary dictated by Dr. Marina yesterday. Meds rx yesterday with med rec
== END 2020-05-25 09:59 | disposition home or self-care (01) | DRG 252 ==
LOC: ERS 14:14 → ERHOLD 20:28 → 2NO 05-22 00:41 → OBSVTOIN 05-22 13:12
PROVIDERS: ADMIT Student in an Organized Health Care Education/Training Program; ATTEND Family Medicine
PROC: 06HY33Z Insertion of Infusion Device into Lower Vein, Percutaneous Approach (ICD-10-PCS; 2020-05-22)
PROC: 5A1D70Z Performance of Urinary Filtration, Intermittent, Less than 6 Hours Per Day (ICD-10-PCS; 2020-05-22)
PROC: 05C83ZZ Extirpation of Matter from Left Axillary Vein, Percutaneous Approach (ICD-10-PCS; principal; 2020-05-24)
PROC: 05783ZZ Dilation of Left Axillary Vein, Percutaneous Approach (ICD-10-PCS; 2020-05-24)
PROC: B51W1ZZ Fluoroscopy of Dialysis Shunt/Fistula using Low Osmolar Contrast (ICD-10-PCS; 2020-05-24)
DX: T82.868A Thrombosis due to vascular prosthetic devices, implants and grafts, initial encounter (principal); N18.6 End stage renal disease; I12.0 Hypertensive chronic kidney disease with stage 5 chronic kidney disease or end stage renal disease; L76.22 Postprocedural hemorrhage of skin and subcutaneous tissue following other procedure; Y83.2 Surgical operation with anastomosis, bypass or graft as the cause of abnormal reaction of the patient, or of later complication, without mention of misadventure at the time of the procedure; Z20.822 Contact with and (suspected) exposure to COVID-19; E11.22 Type 2 diabetes mellitus with diabetic chronic kidney disease; E78.5 Hyperlipidemia, unspecified; M10.9 Gout, unspecified; E11.51 Type 2 diabetes mellitus with diabetic peripheral angiopathy without gangrene; F32.9 Major depressive disorder, single episode, unspecified; E87.5 Hyperkalemia; E78.00 Pure hypercholesterolemia, unspecified; I16.0 Hypertensive urgency; D63.1 Anemia in chronic kidney disease; Y84.8 Other medical procedures as the cause of abnormal reaction of the patient, or of later complication, without mention of misadventure at the time of the procedure; Z79.84 Long term (current) use of oral hypoglycemic drugs; Z99.2 Dependence on renal dialysis; Z87.891 Personal history of nicotine dependence; Z89.612 Acquired absence of left leg above knee; Z79.82 Long term (current) use of aspirin; Z79.899 Other long term (current) drug therapy
CPT/HCPCS: 0240U; 36415; 36416; 36901; 76937; 80048; 80053; 82607; 82746; 83036; 83605; 83735; 84100; 84443; 85025; 85610; 85730; 87040; 90935; 93005; 93970; 96374; 96375; 96376; C1757; G0257; G0378; J0360; J1642; J1644; J1815; Q5105; Q9967

== ENCOUNTER 2020-07-22 10:22 | Inpatient (IN) | payer OTHER ==
[~2020-07-22 10:22] MED LIST: Heparin 1,000 UNITS/ML VIAL ONE
[2020-07-22 12:23] LABS: ALT (SGPT) 19 U/L (8-55); AST (SGOT) 23 U/L (5-34); Albumin 4.5 g/dL (3.4-4.8); Alkaline Phosphatase 75 U/L (40-110); Anion Gap 25 mmol/L (10-20); BUN (Urea Nitrogen) 88 mg/dL (8.4-25.7); Bilirubin, Total 0.6 mg/dL (0.2-1.2); CK (CPK) 142 U/L (30-200); Calc. Creatinine Clearance 0 mL/min (70-130); Calcium 9.6 mg/dL (7.8-10.44); Carbon Dioxide 23 mmol/L (23-31); Chloride 95 mmol/L (98-107); Globulin 3.5 g/dL (2.4-3.5); Glucose 108 mg/dL (83-110); Lipase 105 U/L (8-78); Potassium 6.2 mmol/L (3.5-5.1); Sodium 137 mmol/L (136-145)
[2020-07-22 12:27] LABS: #Eosinphils 0.2 thou/uL (0.0-0.7); #Lymphocytes 1.6 thou/uL (1.20-3.40); #Monocytes 0.7 thou/uL (0.11-0.59); #Neutrophils 4.7 thou/uL (1.40-6.50); %Basophils 0.3 % (0.0-1.0); %Eosinophils 2.8 % (0.0-10.0); %Lymphocytes 21.6 % (21.0-51.0); %Monocytes 10.2 % (0.0-10.0); %Neutrophils 65.2 % (42.0-75.0); Hemoglobin 14.1 g/dL (14.0-18.0); Mean Corpuscular HGB CONC 32.8 g/dL (32.0-36.0); Mean Corpuscular Hemoglobin 32.3 pg (27.0-31.0); Mean Corpuscular Volume 98.3 fL (78.0-98.0); Mean Platelet Volume 9.1 fL (7.4-10.4); Platelet Count 116 thou/uL (130-400); Platelet Morphology Comment Appears Decreased; RBC Distribution Width 15.9 % (11.5-14.5); RBC Morphology Normal; Red Blood Cell (RBC) Count 4.36 mill/uL (4.70-6.10); White Blood Cell (WBC) Count 7.3 thou/uL (4.8-10.8)
[2020-07-22 12:39] LABS: CKMB 2.3 ng/mL (0-6.6)
[2020-07-22] MEDS ORDERED: Sodium Bicarb 50 MEQ/50 ML Abboject 8.4% SYRINGE ONE (13:34)
[2020-07-22] MEDS ORDERED: Calcium Chloride 1 GM/10 ML Abboject SYRINGE ONE (13:34)
[2020-07-22] MEDS ORDERED: Insulin Regular 300 UNITS/3 ML VIAL ONE (13:34)
[2020-07-22] MEDS ORDERED: Dextrose 50% Abboject 50 ML SYRINGE ONE (13:34)
[2020-07-22 17:39] LABS: Anion Gap 27 mmol/L (10-20); BUN (Urea Nitrogen) 91 mg/dL (8.4-25.7); Calc. Creatinine Clearance 0 mL/min (70-130); Calcium 10.6 mg/dL (7.8-10.44); Carbon Dioxide 26 mmol/L (23-31); Chloride 94 mmol/L (98-107); Glucose 62 mg/dL (83-110); Potassium 5.1 mmol/L (3.5-5.1); Sodium 142 mmol/L (136-145)
[2020-07-22] MEDS ORDERED: Ondansetron PF 4 MG/2 ML Vial IVP PRN (18:05)
[2020-07-22] MEDS ORDERED: Acetaminophen 325 MG TAB PO PRN (18:05)
[2020-07-22] MEDS ORDERED: Guaifenesin DM 100-10/5 ML UDCUP PO PRN (18:05)
[2020-07-22] MEDS ORDERED: HYDROcodone/Acetaminophen 5/325 mg Tablet PO PRN (18:05)
[2020-07-22] MEDS ORDERED: Calcium Carbonate 500 MG ChewTAB PO PRN (18:05)
[2020-07-22] MEDS ORDERED: Senokot S 8.6-50 MG TAB PO PRN (18:05)
[2020-07-22] MEDS ORDERED: Bisacodyl 10 MG SUPP PR PRN (18:05)
[2020-07-22] MEDS ORDERED: Nitroglycerin 2% Ointment 1 INCH/1 GM Packet ONE (18:38)
[2020-07-22] MEDS ORDERED: Nitroglycerin 2% Ointment 1 INCH/1 GM Packet TOP SCH (19:00)
[2020-07-22] MEDS: Carvedilol 6.25 MG TAB PO SCH (19:13)
[2020-07-22] MEDS: Sevelamer Carbonate 800 MG TAB PO SCH (20:02)
[2020-07-22] MEDS: Heparin 5,000 UNITS/ML VIAL SC SCH (20:02)
[2020-07-22 21:32] VITALS: BMI 23.8
[2020-07-23 05:58] LABS: #Eosinphils 0.2 thou/uL (0.0-0.7); #Lymphocytes 1.3 thou/uL (1.20-3.40); #Monocytes 0.6 thou/uL (0.11-0.59); #Neutrophils 3.2 thou/uL (1.40-6.50); %Basophils 0.4 % (0.0-1.0); %Eosinophils 3.6 % (0.0-10.0); %Lymphocytes 25.1 % (21.0-51.0); %Monocytes 10.7 % (0.0-10.0); %Neutrophils 60.2 % (42.0-75.0); Hemoglobin 12.7 g/dL (14.0-18.0); Mean Corpuscular HGB CONC 33.9 g/dL (32.0-36.0); Mean Corpuscular Hemoglobin 32.9 pg (27.0-31.0); Mean Platelet Volume 8.6 fL (7.4-10.4); Platelet Count 118 thou/uL (130-400); RBC Distribution Width 15.4 % (11.5-14.5); Red Blood Cell (RBC) Count 3.87 mill/uL (4.70-6.10); White Blood Cell (WBC) Count 5.3 thou/uL (4.8-10.8)
[2020-07-23 05:59] LABS: #Eosinphils 0.2 thou/uL (0.0-0.7); #Lymphocytes 1.4 thou/uL (1.20-3.40); #Monocytes 0.6 thou/uL (0.11-0.59); #Neutrophils 3.3 thou/uL (1.40-6.50); %Basophils 0.2 % (0.0-1.0); %Eosinophils 3.7 % (0.0-10.0); %Lymphocytes 24.9 % (21.0-51.0); %Monocytes 10.1 % (0.0-10.0); %Neutrophils 61.1 % (42.0-75.0); Hemoglobin 12.5 g/dL (14.0-18.0); Mean Corpuscular HGB CONC 33.6 g/dL (32.0-36.0); Mean Corpuscular Hemoglobin 32.6 pg (27.0-31.0); Mean Platelet Volume 8.9 fL (7.4-10.4); Platelet Count 114 thou/uL (130-400); RBC Distribution Width 15.4 % (11.5-14.5); Red Blood Cell (RBC) Count 3.83 mill/uL (4.70-6.10); White Blood Cell (WBC) Count 5.4 thou/uL (4.8-10.8)
[2020-07-23 06:16] LABS: Anion Gap 26 mmol/L (10-20); BUN (Urea Nitrogen) 97 mg/dL (8.4-25.7); Calc. Creatinine Clearance 5 mL/min (70-130); Calcium 9.2 mg/dL (7.8-10.44); Carbon Dioxide 23 mmol/L (23-31); Chloride 95 mmol/L (98-107); Glucose 99 mg/dL (83-110); Potassium 4.9 mmol/L (3.5-5.1); Sodium 139 mmol/L (136-145)
[2020-07-23 06:17] LABS: Albumin 3.9 g/dL (3.4-4.8); Anion Gap 25 mmol/L (10-20); BUN (Urea Nitrogen) 96 mg/dL (8.4-25.7); BUN/Creatinine Ratio 5.92; Calc. Creatinine Clearance 5 mL/min (70-130); Calcium 9.3 mg/dL (7.8-10.44); Carbon Dioxide 23 mmol/L (23-31); Chloride 95 mmol/L (98-107); Glucose 101 mg/dL (83-110); Phosphorus 8.5 mg/dL (2.3-4.7); Potassium 4.9 mmol/L (3.5-5.1); Sodium 138 mmol/L (136-145)
[2020-07-23 06:59] LABS: SARS-CoV-2 PCR by NAA Not Detected (NotDetected)
[2020-07-23] MEDS: Multivit, Therapeutic 1 TAB PO SCH (08:27)
[2020-07-23] MEDS: Rosuvastatin 10 MG TAB PO SCH (08:27)
[2020-07-23] MEDS: Carvedilol 6.25 MG TAB PO SCH ×2 (08:28→20:43)
[2020-07-23] MEDS: Sevelamer Carbonate 800 MG TAB PO SCH ×3 (08:28→20:44)
[2020-07-23] MEDS: Folic Acid/Vit B Comp W-C PO SCH (08:28)
[2020-07-23] MEDS: Heparin 5,000 UNITS/ML VIAL SC SCH ×2 (08:29→20:43)
[2020-07-23] MEDS: Aspirin 81 mg Enteric Coated Tablet PO SCH (08:29)
[2020-07-23] MEDS ORDERED: CEFAZOLIN 2 GM in Premix Bag 1 BAG IVPB SCH (09:15)
[2020-07-24 05:55] LABS: #Eosinphils 0.1 thou/uL (0.0-0.7); #Lymphocytes 1.5 thou/uL (1.20-3.40); #Monocytes 0.5 thou/uL (0.11-0.59); #Neutrophils 3.1 thou/uL (1.40-6.50); %Basophils 0.8 % (0.0-1.0); %Eosinophils 2.8 % (0.0-10.0); %Lymphocytes 28.1 % (21.0-51.0); %Monocytes 8.8 % (0.0-10.0); %Neutrophils 59.6 % (42.0-75.0); Anion Gap 27 mmol/L (10-20); BUN (Urea Nitrogen) 119 mg/dL (8.4-25.7); Calc. Creatinine Clearance 5 mL/min (70-130); Calcium 8.7 mg/dL (7.8-10.44); Carbon Dioxide 24 mmol/L (23-31); Chloride 95 mmol/L (98-107); Glucose 118 mg/dL (83-110); Mean Corpuscular Hemoglobin 32.6 pg (27.0-31.0); Mean Corpuscular Volume 95.7 fL (78.0-98.0); Mean Platelet Volume 8.9 fL (7.4-10.4); Platelet Count 118 thou/uL (130-400); Potassium 4.8 mmol/L (3.5-5.1); RBC Distribution Width 15.2 % (11.5-14.5); Red Blood Cell (RBC) Count 3.68 mill/uL (4.70-6.10); Sodium 141 mmol/L (136-145); White Blood Cell (WBC) Count 5.2 thou/uL (4.8-10.8)
[2020-07-24] MEDS: Carvedilol 6.25 MG TAB PO SCH (06:23)
[2020-07-24] MEDS ORDERED: Sterile Water 10 ML VIAL IVP SCH (06:45)
[2020-07-24] MEDS ORDERED: Activase 2 MG VIAL CATH SCH (06:45)
[2020-07-24] MEDS: Heparin 5,000 UNITS/ML VIAL SC SCH (10:56)
[2020-07-24] MEDS: Aspirin 81 mg Enteric Coated Tablet PO SCH (10:56)
[2020-07-24] MEDS: Sevelamer Carbonate 800 MG TAB PO SCH ×2 (10:56→16:28)
[2020-07-24] MEDS ORDERED: Iopamidol 300 61% 50 ML VIAL FS ONE (12:40)
[2020-07-24] MEDS ORDERED: Bupivacaine PF 0.5% 30 ML VIAL ONE (14:17)
[2020-07-24] MEDS ORDERED: Protamine Sulfate 50 MG/5 ML VIAL ONE (14:17)
[2020-07-24] MEDS ORDERED: Heparin 5,000 UNITS/ML VIAL ONE (14:17)
[2020-07-24] MEDS ORDERED: Lidocaine 1% w/Epinephrine 1:100K 20 ML VIAL ONE (14:17)
[2020-07-24] MEDS ORDERED: Propofol 1,000 MG/100 ML VIAL IV ONE (14:18)
[2020-07-24] MEDS ORDERED: Fentanyl 100 MCG/2 ML VIAL ONE (14:18)
[2020-07-24] MEDS ORDERED: Midazolam HCl 2 mg/2 ml Vial ONE (14:18)
[2020-07-24] MEDS ORDERED: Lidocaine 1% PF 5 ML VIAL ONE (14:51)
[2020-07-24] MEDS ORDERED: PHENYLEPHRINE-NS 100 MCG/ML 10 ML SYRINGE ONE (14:51)
[2020-07-24] MEDS ORDERED: hydrALAZINE 25 MG TAB PO SCH (15:00)
[2020-07-24] MEDS ORDERED: traMADol HCl 50 MG TAB PO PRN (15:05)
[2020-07-24] MEDS ORDERED: Ondansetron HCl/PF 4 MG/2 ML Vial IVP PRN (16:16)
[2020-07-24] MEDS ORDERED: Promethazine HCl 25 MG/ML VIAL IM PRN (16:16)
[2020-07-24] MEDS ORDERED: Promethazine HCl 25 MG/ML VIAL SLOW IVP PRN (16:16)
[2020-07-24] MEDS: Multivit, Therapeutic 1 TAB PO SCH (18:28)
[2020-07-24] MEDS: Folic Acid/Vit B Comp W-C PO SCH (18:28)
[2020-07-24] MEDS: Rosuvastatin 10 MG TAB PO SCH (18:28)
[2020-07-24 19:40] VITALS: BP 163/81; TEMP 96.8
[2020-07-24] MEDS ORDERED: cloNIDine 0.1 MG TAB PO SCH (21:00)
== END 2020-07-24 19:04 | disposition home or self-care (01) | DRG 252 ==
LOC: ERS 10:22 → ERHOLD 13:05 → 2NO 19:22
PROVIDERS: ADMIT Internal Medicine; ATTEND Student in an Organized Health Care Education/Training Program
PROC: 5A1D70Z Performance of Urinary Filtration, Intermittent, Less than 6 Hours Per Day (ICD-10-PCS; 2020-07-22)
PROC: 05C80ZZ Extirpation of Matter from Left Axillary Vein, Open Approach (ICD-10-PCS; principal; 2020-07-24)
PROC: 031 Upper Arteries, Bypass (ICD-10-PCS; 2020-07-24)
DX: T82.868A Thrombosis due to vascular prosthetic devices, implants and grafts, initial encounter (principal); N18.6 End stage renal disease; I12.0 Hypertensive chronic kidney disease with stage 5 chronic kidney disease or end stage renal disease; E87.5 Hyperkalemia; E78.5 Hyperlipidemia, unspecified; M10.9 Gout, unspecified; E83.39 Other disorders of phosphorus metabolism; E87.70 Fluid overload, unspecified; E11.42 Type 2 diabetes mellitus with diabetic polyneuropathy; F32.9 Major depressive disorder, single episode, unspecified; E11.22 Type 2 diabetes mellitus with diabetic chronic kidney disease; Z20.822 Contact with and (suspected) exposure to COVID-19; Y83.8 Other surgical procedures as the cause of abnormal reaction of the patient, or of later complication, without mention of misadventure at the time of the procedure; Z99.2 Dependence on renal dialysis; Z79.82 Long term (current) use of aspirin; Z87.891 Personal history of nicotine dependence; Z89.512 Acquired absence of left leg below knee
CPT/HCPCS: 36415; 36416; 36901; 36905; 71045; 75902; 80048; 80053; 82550; 82553; 83690; 83880; 84484; 85025; 87635; 90935; 93005; 96374; 96375; C1725; C1757; G0257; J0690; J1644; J1815; J2250; J2704; J2720; J2997; J3010; Q9967; S0020; U0003; U0005